=== PATIENT | female | born 1995 | race Caucasian/White ===

== ENCOUNTER 2018-04-29 16:04 | Emergency (ER) | payer MEDICAID ==
[~2018-04-29] VITALS: Ht 160 cm; Wt 46.7 kg
[2018-04-29 16:17] VITALS: BP_SYST 108
[2018-04-29] MEDS ORDERED: ONDANSETRON 4 MG ODT TAB PO ONE (16:30)
[2018-04-29] MEDS ORDERED: ACETAMINOPHEN 500 MG TABLET PO ONE (17:45)
[2018-04-29 18:05] VITALS: BP_SYST 132
== END 2018-04-29 18:05 | disposition home or self-care (01) ==
LOC: SED 16:04
DX: R11.10 Vomiting, unspecified (principal); K21.9 Gastro-esophageal reflux disease without esophagitis; Z86.19 Personal history of other infectious and parasitic diseases; Z91.14 Patient's other noncompliance with medication regimen
CPT/HCPCS: 81025; 99283; Q0162

== ENCOUNTER 2018-07-03 17:13 | Emergency (ER) | payer MEDICAID ==
[~2018-07-03] VITALS: Ht 152.4 cm; Wt 46.3 kg
[2018-07-03 17:18] VITALS: BP_SYST 120
--- NOTE | 2018-07-03 17:54 | NUR ---
Patient to ER bed 5 to gown for evaluation. Side rails up. Report given to Beth DUNN.
--- NOTE | 2018-07-03 17:57 | NUR ---
1757 - Patient to ER bed 5 to gown for evaluation. Side rails up. Report given to MONA Campos.
--- NOTE | 2018-07-03 18:00 | NUR ---
RADHA Tejada at bedside examining patient.
[2018-07-03] MEDS ORDERED: KETOROLAC TROMETHAMINE 60 MG/2 ML VIAL IM ONE (18:15)
[2018-07-03 18:46] VITALS: BP_SYST 120
--- NOTE | 2018-07-03 18:47 | NUR ---
Juan Francisco mcrae in ED - 07/03/18 at 1848 by [email or web address] RADHA Meeks at bedside examining patient.
--- NOTE | 2018-07-03 18:48 | NUR ---
Patient given written and verbal discharge instructions and verbalizes understanding. ER [employer] WORKER discussed with patient the results and treatment provided. Patient in stable condition. ID arm band removed. Rx of motrin given. Patient educated on pain management and to follow up with PMD. Pain Scale 5. Opportunity for questions provided and answered. Medication side effect fact sheet provided.
== END 2018-07-03 18:46 | disposition home or self-care (01) ==
LOC: SED 17:13
DX: S16.1XXA Strain of muscle, fascia and tendon at neck level, initial encounter (principal); M94.0 Chondrocostal junction syndrome [Tietze]; K21.9 Gastro-esophageal reflux disease without esophagitis; X58.XXXA Exposure to other specified factors, initial encounter; Y93.89 Activity, other specified; Y92.89 Other specified places as the place of occurrence of the external cause; Y99.8 Other external cause status
CPT/HCPCS: 81025; 93005; 96372; 99283; J1885

== ENCOUNTER 2018-11-18 13:47 | Emergency (ER) | payer MEDICAID ==
[~2018-11-18] VITALS: Ht 152.4 cm; Wt 47.6 kg
[2018-11-18 13:50] VITALS: BP_SYST 111
[2018-11-18] MEDS ORDERED: MAG HYDROX/AL HYDROX/SIMETH 30 ML, LIDOCAINE VISCOUS 2% 15ML (PO) 10 ML, DICYCLOMINE HC... PO ONE ×3 (14:15)
[2018-11-18] MEDS ORDERED: ONDANSETRON 4 MG ODT TAB PO ONE (14:15)
[2018-11-18 14:37] LABS: EOSINOPHILS # (AUTO) 0.1 K/uL (0.0-0.4); EOSINOPHILS % (AUTO) 3.2 % (0.0-4.0); HEMATOCRIT 39.9 % (36-48); HEMOGLOBIN 13.3 g/dL (12.0-16.0); LYMPHOCYTES # (AUTO) 0.9 K/uL (1.0-5.5); LYMPHOCYTES % (AUTO) 21.7 % (20.5-51.5); MEAN CORPUSCULAR HEMOGLOBIN 30 pg (27-31); MEAN CORPUSCULAR HGB CONC 33 % (32-36); MEAN CORPUSCULAR VOLUME 89 fL (79.0-98.0); MONOCYTES # (AUTO) 0.2 K/uL (0.0-1.0); NEUTROPHILS % (AUTO) 69.1 % (40.0-70.0); PLATELET COUNT (AUTO) 210 K/uL (130-430); RED CELL DISTRIBUTION WIDTH 13.4 % (9.0-15.0); WHITE BLOOD COUNT (AUTO) 4.3 K/uL (4.8-10.8)
[2018-11-18 14:41] LABS: CALCIUM 9.5 mg/dL (8.4-11.0); CREATININE 0.59 mg/dL (0.55-1.30); POTASSIUM 3.9 mmol/L (3.5-5.1)
[2018-11-18 14:44] LABS: BILIRUBIN,URINE NEGATIVE (NEGATIVE); BLOOD, URINE NEGATIVE (NEGATIVE); CLARITY/URINE CLEAR (CLEAR); COLOR,URINE YELLOW (YELLOW); GLUCOSE,URINE NEGATIVE (NEGATIVE); KETONES,URINE NEGATIVE (NEGATIVE); LEUKOCYTE ESTERASE ,URINE NEGATIVE (NEGATIVE); NITRITE, URINE NEGATIVE (NEGATIVE); PH,URINE 5.5 (5.0-8.0); PROTEIN URINE NEGATIVE (NEGATIVE); UROBILINOGEN,URINE 0.2 (0.2-1.0)
[2018-11-18 14:45] LABS: ALBUMIN 4.1 g/dL (3.4-4.8); TOTAL BILIRUBIN 0.6 mg/dL (0.0-1.0)
== END 2018-11-18 15:40 | disposition home or self-care (01) ==
LOC: SED 13:47
DX: K21.9 Gastro-esophageal reflux disease without esophagitis (principal); D72.819 Decreased white blood cell count, unspecified
CPT/HCPCS: 36415; 71045; 76700-TC; 80053; 81003; 81025; 83690-TC; 85025; 93005; 99284; J2001; Q0162